=== PATIENT | female | born 1955 | race Caucasian/White ===

== ENCOUNTER → 2016-12-29 | Outpatient (CLI) | payer OTHER ==
[~2016-12-29] MED LIST: ACET1CAP18 PO; ALBI1INJ2 SQ; AUGM875T PO; BENZ100 PO; BLOOD GLUCOSE M1 KIT; CENTTAB8 PO; ERGO1CAP10 PO; HYDR12.57 PO; IBUP800T23 PO; INSU1INJ5 SQ; MAGN500T5 PO; MEGE40TA PO; METF500T PO; OXYC1TAB63 PO; PRAV20TA2 PO; VICT18IN SQ
[2016-12-29 11:09] LABS: AUTOMATED NEUTROPHIL # 3.2 TH/MM3 (1.8-7.7); BASOPHIL # 0.1 TH/MM3 (0-0.2); BASOPHIL % 0.8 % (0.0-2.0); EOSINOPHIL # 0.3 TH/MM3 (0-0.4); EOSINOPHIL % 3.9 % (0.0-4.0); HEMATOCRIT 37.2 % (35.0-46.0); HEMO FLAGS DIFF FINAL; LYMPH % 39.2 % (9.0-44.0); LYMPHOCYTE # 2.6 TH/MM3 (1.0-4.8); MEAN CELL VOLUME 78.3 FL (80.0-100.0); MEAN CORPUSCULAR HEMOGLOBIN 25.8 PG (27.0-34.0); MONO % 7.2 % (0.0-8.0); NEUT % 48.9 % (16.0-70.0); PLATELET COUNT 268 TH/MM3 (150-450); RED BLOOD COUNT 4.75 MIL/MM3 (4.00-5.30); RED CELL DISTRIBUTION WIDTH 16.4 % (11.6-17.2); WHITE BLOOD COUNT 6.5 TH/MM3 (4.0-11.0)
[2016-12-29 11:15] LABS: APTT (PATIENT) 26.6 SEC (24.3-30.1); PROTHROMBIN TIME - PATIENT 10.7 SEC (9.8-11.6)
[2016-12-29 11:35] LABS: TRANSFERRIN IRON PROFILE 338 MG/DL (200-360)
[2016-12-29 11:44] LABS: ALKALINE PHOSPHATASE 73 U/L (45-117); ALT (GPT) 29 U/L (10-53); ANION GAP 11 MEQ/L (5-15); AST (GOT) 11 U/L (15-37); BICARBONATE 21.5 MEQ/L (21.0-32.0); BLOOD UREA NITROGEN 12 MG/DL (7-18); CHLORIDE 109 MEQ/L (98-107); FREE T4 1.05 NG/DL (0.76-1.46); GLOMERULAR FILTRATION RATE 82 ML/MIN (>89); GLUCOSE,FASTING 108 MG/DL (74-99); HDL CHOLESTEROL 29.5 MG/DL (40.0-60.0); LDL CHOLESTEROL 114 MG/DL (0-99); POTASSIUM 3.9 MEQ/L (3.5-5.1); SODIUM (NA) 141 MEQ/L (136-145); TOTAL BILIRUBIN ADULT 0.3 MG/DL (0.2-1.0)
[2016-12-29 12:15] LABS: HEMOGLOBIN A1a 1.4 %; HEMOGLOBIN A1b 2.2 %; HEMOGLOBIN Ao 81.7 %; HEMOGLOBIN LA1C 2.1 %
[2016-12-29 15:32] LABS: CREATININE RANDOM URINE 25 MG/DL (27-300)
[2016-12-29 15:41] LABS: MICRO ALBUMIN RANDOM URINE RAW LESS THAN 5.0 MG/L (0.0-30.0); MICROALBUMIN/CREAT RATIO RAND 20 MG/G CRE (0-30)
[2017-01-02 17:54] LABS: THYROGLOB ABS LESS THAN 1 IU/mL (< OR = 1)
== END ==
LOC: CLAB 10:22
PROVIDERS: ATTEND Internal Medicine Geriatric Medicine
DX: Z01.812 Encounter for preprocedural laboratory examination (principal); E11.9 Type 2 diabetes mellitus without complications; I10 Essential (primary) hypertension; E78.5 Hyperlipidemia, unspecified; E03.9 Hypothyroidism, unspecified; E55.9 Vitamin D deficiency, unspecified; R53.83 Other fatigue; R71.8 Other abnormality of red blood cells
CPT/HCPCS: 36415; 80053; 80061; 82043; 82306; 83036; 83540; 83550; 84439; 84443; 84480; 85025; 85610; 85730; 86376; 86800

== ENCOUNTER 2017-01-04 05:50 | Observation (INO) | payer OTHER ==
[~2017-01-04] VITALS: Ht 121.9 cm; Wt 5.0 kg
[~2017-01-04 05:50] MED LIST changes: -ALBI1INJ2 SQ; -AUGM875T PO; -BENZ100 PO; -CENTTAB8 PO; -ERGO1CAP10 PO; -HYDR12.57 PO; -IBUP800T23 PO; -OXYC1TAB63 PO
[2017-01-04 06:15] VITALS: BP 135/72; PULSE 93; RESP 20; TEMP 98.9; O2SAT 96
[2017-01-04] MEDS ORDERED: HEPARIN SODIUM - SQ 10,000 UNITS/ML VIAL SQ SCH (06:30)
[2017-01-04] MEDS ORDERED: ceFAZolin 2 GM PREMIX 50 ML IV SCH ×2 (06:30)
[2017-01-04] MEDS: SODIUM CHLORID 0.9% 500 ML IV SCH ×2 (06:45→23:24)
[2017-01-04] MEDS ORDERED: METOPROLOL TARTRATE 25 MG TAB PO PRN (06:45)
[2017-01-04] MEDS ORDERED: INSULIN HUMAN REGULAR 1,000 UNITS/10 ML VIAL SQ PRN (06:45)
[2017-01-04] MEDS ORDERED: LACTATED RINGER'S 1000 ML IV SCH (06:45)
[2017-01-04] MEDS ORDERED: DICLOFENAC SODIUM 37.5 MG/ML VIAL IV PUSH ONE (07:01)
[2017-01-04] MEDS ORDERED: SUGAMMADEX SODIUM 200 MG/2 ML VIAL IV PUSH ONE ×2 (07:02)
[2017-01-04] MEDS ORDERED: ACETAMINOPHEN 1000 MG/100 ML VIAL IV ONE (07:02)
[2017-01-04] MEDS ORDERED: HYDROmorphone HCL PF 2 MG/ML VIAL ONE (07:02)
[2017-01-04] MEDS ORDERED: ARTIFICIAL TEARS OPTH OINT 3.5 APPLIC/3.5 GM TUBO ONE (07:45)
[2017-01-04] MEDS ORDERED: LIDOCAINE 1%/EPINEPHrine 1:100,000 SOLN 30 ML VIAL INFIL ONE (08:30)
[2017-01-04] MEDS ORDERED: ceFAZolin INJ 1,000 MG VIAL IV ONE (10:20)
[2017-01-04] MEDS ORDERED: METHYLENE BLUE 10 MG/ML VIAL OTHER ONE (11:07)
[2017-01-04] MEDS ORDERED: NORMOSOL R INJ 1,000 ML IV ONE (12:00)
[2017-01-04] MEDS ORDERED: PHENYLEPH/NS 1000 MCG/10 ML SYR IV ONE (12:00)
[2017-01-04] MEDS ORDERED: ONDANSETRON HCL 4 MG/2 ML VIAL IV PUSH ONE (12:00)
[2017-01-04] MEDS ORDERED: PROPOFOL 200 MG/20 ML AMP IV ONE (12:00)
[2017-01-04] MEDS ORDERED: NEOSTIGMINE 3 MG/3 ML SYR IV ONE (12:00)
[2017-01-04] MEDS ORDERED: DO NOT ADM ANY ANTICOAGULANT DRUGS XX PRN (12:12)
[2017-01-04] MEDS ORDERED: SODIUM CHLORIDE 0.9% FLUSH 5 ML FLUSH FLUSH PRN (12:15)
[2017-01-04] MEDS ORDERED: *morphine SULFATE 8 MG/ML PERIprocedure ONLY ONE (12:36)
[2017-01-04] MEDS ORDERED: fentaNYL CITRATE 250 MCG/5 ML AMP ONE (12:42)
[2017-01-04] MEDS ORDERED: MIDAZOLAM HCL 2 MG/2 ML VIAL ONE (12:42)
[2017-01-04] MEDS: KETOROLAC TROMETHAMINE 30 MG/ML (IVP) VIAL IVP SCH ×3 (13:00→23:22)
[2017-01-04] MEDS ORDERED: oxyCODONE/ACETAMINOPHEN 5 MG/325 MG TAB PO PRN (13:00)
[2017-01-04] MEDS ORDERED: LORazepam 0.5 MG TAB PO PRN (13:00)
[2017-01-04] MEDS ORDERED: HYDROmorphone HCL PF 1 MG/ML VIAL IVP PRN (13:00)
[2017-01-04] MEDS ORDERED: ONDANSETRON HCL 4 MG/2 ML VIAL IVP PRN (13:00)
[2017-01-04] MEDS ORDERED: diphenhydrAMINE HCL 25 MG CAP PO PRN (13:00)
[2017-01-04] MEDS: D5-1/2 NS + KCL 20 MEQ INJ 1,000 ML IV SCH ×2 (13:00→23:22)
--- NOTE | 2017-01-04 15:59 | PD.ONC.PN ---
Subjective Subjective Remarks post op note pt seen in PACU awaiting bed on denies any pain or n/v no complaints at this time Objective Data Date Time Temp Pulse Resp B/P Pulse Ox O2 Delivery O2 Flow Rate FiO2 01/04/17 14:59 78 15 124/56 98 Nasal Cannula 2 01/04/17 13:40 80 15 107/64 97 Nasal Cannula 2 01/04/17 12:30 72 15 135/56 97 Nasal Cannula 2 01/04/17 12:15 99 15 131/64 96 Nasal Cannula 2 01/04/17 12:12 99.0 99 15 128/74 96 Nasal Cannula 2 01/04/17 06:15 98.9 93 20 135/72 96 01/04/17 01/04/17 01/04/17 07:00 15:00 23:00 Intake Total 1500 ml Output Total 800 ml Balance 700 ml Laboratory Results Laboratory Tests Test 01/04/17 06:30 Blood Type B POSITIVE Antibody Screen NEGATIVE Blood Bank Comment Administered Medications Medications (Trade) Dose Ordered Sig/Basia Route PRN Reason Start Time Stop Time Status Last Admin Dose Admin Potassium Chloride/Dextrose/ Sod Cl (D5-1/2 NS + KCl 20 Meq Inj) 1,000 ml @ 100 mls/hr Q10H IV 01/04/17 13:00 01/04/17 13:00 Ketorolac Tromethamine (Toradol Inj) 15 mg Q6H IVP 01/04/17 13:00 01/05/17 07:01 01/04/17 13:00 Objective Remarks GENERAL: Well-nourished, well-developed patient. SKIN: Warm and dry. HEAD: Normocephalic. EYES: lids mild swelling CARDIOVASCULAR: Regular rate and rhythm without murmurs. RESPIRATORY: Breath sounds equal bilaterally. No accessory muscle use. GASTROINTESTINAL: SS are C/D/I EXTREMITIES: teds and scds MUSCULOSKELETAL: Adequate muscle tone. NEUROLOGICAL: Awake, alert, and oriented x3. PSYCHIATRIC: Appropriate mood and affect; insight and judgment normal. Assessment/Plan Problem List: (1) Endometrial hyperplasia with atypia Status: Resolved Plan: s/p RA lap hyst with BSO (2) Postoperative state Status: Acute Plan: post op orders in chart pain meds per EMR ADAT OOB to chair encourage IS anticipate d/c home in next 24 hours d/c Gold in morning Remedios,Dorey L. OPERATIONS SUPPORT SPECIALIST Jan 04, 2017 15:59
[2017-01-04] MEDS: INSULIN NovoLIN REGULAR SUPPLEMENTAL SCALE SQ SCH ×2 (16:00→20:55)
[2017-01-04 17:30] VITALS: BP 115/59; PULSE 89; RESP 20; TEMP 97.8; O2SAT 96
[2017-01-04 20:00] VITALS: BP 111/58; PULSE 70; RESP 17; TEMP 97.4; O2SAT 96
[2017-01-04] MEDS: SODIUM CHLORIDE 0.9% FLUSH 5 ML FLUSH FLUSH SCH (20:49)
[2017-01-05] VITALS: BP 121/72; PULSE 76; RESP 17; TEMP 97.7; O2SAT 98
[2017-01-05 04:00] VITALS: BP 123/64; PULSE 84; RESP 18; TEMP 96.9; O2SAT 95
[2017-01-05] MEDS: oxyCODONE/ACETAMINOPHEN 5 MG/325 MG TAB PO PRN ×2 (04:23→09:08)
[2017-01-05 04:40] VITALS: O2SAT 95
[2017-01-05] MEDS: KETOROLAC TROMETHAMINE 30 MG/ML (IVP) VIAL IVP SCH (05:59)
[2017-01-05] MEDS: INSULIN NovoLIN REGULAR SUPPLEMENTAL SCALE SQ SCH (06:00)
[2017-01-05] MEDS ORDERED: OXYC1TAB63 PO (06:57)
[2017-01-05 08:00] VITALS: BP 106/57; PULSE 79; RESP 18; TEMP 97.3; O2SAT 95
[2017-01-05 08:11] VITALS: O2SAT 96
[2017-01-05] MEDS ORDERED: PRAVASTATIN SOD 20 MG TAB PO SCH (09:00)
[2017-01-05] MEDS: D5-1/2 NS + KCL 20 MEQ INJ 1,000 ML IV SCH (09:00)
[2017-01-05] MEDS: SODIUM CHLORIDE 0.9% FLUSH 5 ML FLUSH FLUSH SCH (09:08)
[2017-01-05 10:06] LABS: AUTOMATED NEUTROPHIL # 5.1 TH/MM3 (1.8-7.7); BASOPHIL % 0.5 % (0.0-2.0); EOSINOPHIL # 0.2 TH/MM3 (0-0.4); EOSINOPHIL % 2.1 % (0.0-4.0); HEMATOCRIT 33.6 % (35.0-46.0); HEMO FLAGS DIFF FINAL; LYMPH % 24.3 % (9.0-44.0); LYMPHOCYTE # 1.9 TH/MM3 (1.0-4.8); MEAN CELL VOLUME 79.7 FL (80.0-100.0); MEAN CORPUSCULAR HEMOGLOBIN 25.5 PG (27.0-34.0); MEAN CORPUSCULAR HGB CONC 32.1 % (32.0-36.0); MONO % 8.3 % (0.0-8.0); NEUT % 64.8 % (16.0-70.0); PLATELET COUNT 240 TH/MM3 (150-450); RED BLOOD COUNT 4.22 MIL/MM3 (4.00-5.30); RED CELL DISTRIBUTION WIDTH 16.5 % (11.6-17.2); WHITE BLOOD COUNT 7.8 TH/MM3 (4.0-11.0)
[2017-01-05 10:36] LABS: BICARBONATE 25.1 MEQ/L (21.0-32.0); POTASSIUM 3.4 MEQ/L (3.5-5.1)
--- NOTE | 2017-01-05 21:25 | MP ---
cc: MD ALMA DELIA,MOUSTAPHA PATTERSON MD,JESSICA Alcantara MD DATE OF SURGERY 01/04/2017 PREOPERATIVE DIAGNOSIS 1. Postmenopausal bleeding. 2. Complex atypical endometrial hyperplasia. 3. Enlarged uterus. POSTOPERATIVE DIAGNOSIS 1. Postmenopausal bleeding. 2. Complex atypical endometrial hyperplasia. 3. Enlarged uterus. 4. Multiple uterine leiomyomas and endometrial polyp. PROCEDURE Robotic-assisted laparoscopic hysterectomy, bilateral salpingo-oophorectomy. SURGEON Lorraine Taylor MD IRRIGATION SYSTEM INSTALLER Victor director of first impressions ANESTHESIA General endotracheal anesthesia ESTIMATED BLOOD LOSS 300 mL IV FLUIDS 1500 mL URINE OUTPUT 500 mL HISTORY A 61-year-old female postmenopausal bleeding, thickened endometrial stripe. Sampling of the endometrium revealed and removed a fairly large polyp approximately 4 cm. There was some complex atypical endometrial hyperplasia and the uterus itself was enlarged. She was counseled regarding these findings. The potentially precancers nature of atypical hyperplasia as well as often coexistent finding of endometrial cancer in the setting of an endometrial biopsy showing atypical hyperplasia. She has been counseled regarding treatment options and is in favor of definitive surgery. FINDINGS The uterine cavity sounded to between 15 and 16 cm and the overall fundal height was estimated to be close to 20 cm. The uterine fundus and uterus itself were markedly enlarged, but the cervical anatomy and paracervical tissues were normal. The tubes and ovaries grossly appeared normal bilaterally. There were no appreciably enlarged lymph nodes. There were no peritoneal implants. Liver diaphragm edges were smooth. Omentum, large/small bowel, adjacent mesentery and appendix were without implants or obvious abnormality. A few colonic diverticulum were noted without evidence of diverticulitis. Preliminary pathology on the uterus once removed showed multiple leiomyomas and a large (approximately 12 cm) benign-appearing endometrial polyp which may have had some hyperplasia on the epithelium, no overt evidence of malignancy. STATEMENT OF COMPLEXITY The complexity of this case was increased significantly due to the markedly enlarged uterus which increased the complexity at the many steps of the procedure and modifier should be applied accordingly. PROCEDURE IN DETAIL The patient taken operating room placed in dorsal lithotomy position. after general endotracheal anesthesia was administered time-out was undertaken. The patient was identified by sight recognition and hospital ID bracelet and the proposed procedure was reviewed and confirmed. She was carefully positioned in padded Davis stirrups. Her arms were padded and secured to the sides. She was further secured to the operating table with egg crate padding and tape in across chest over the shoulder fashion. All sites were noted to be properly aligned with no malalignments or pressure points. She was prepped in sterile fashion, draped below the waist, placed in high lithotomy position. Cervix grasped, uterine cavity was sounded, cervix dilated and a large V-Care manipulator was inserted and secured usual fashion. Gold catheter placed in the bladder. She was returned to low lithotomy position. Change of sterile gloves was undertaken. We completed draping in anticipation of laparoscopy. After confirming that an orogastric airway was in the stomach on suction with manual elevation of the abdominal wall and direct laparoscopic visualization, 5 mm cannula placed in the left upper quadrant and atraumatic entry was confirmed. Carbon dioxide gas was insufflated. Peritoneal washings were obtained for cytology. She was placed in steep Trendelenburg position. The anatomy was reviewed with findings as described above. The small bowel was folded back on its mesenteric root. Three Ray-Aleks sponges were placed around the root of the small bowel mesentery. The robotic system was brought into the operative field and attached in usual fashion. Monopolar scissors, fenestrated bipolar forceps and Prograsp manipulators were placed in arms #1, 2 and 3 respectively and I took my place at the surgeon's console. Right round ligament isolated, cauterized, transected. The anterior and posterior leafs of the broad ligament were opened. Right ureter was identified. The right infundibulopelvic ligament was dissected to the level of the pelvic brim. The intervening peritoneum was opened. The infundibulopelvic ligament was cauterized and transected. Posterior peritoneum opened along the right side of the uterus and cervix. Right vesicouterine peritoneum dissected off the lower uterine segment and cervix. The right uterine vessels were skeletonized. Attention was directed toward the left side. Left round ligament isolated, cauterized, transected. Anterior and posterior leafs of the broad ligament were opened. Left ureter identified, left infundibulopelvic ligament dissected, intervening peritoneum opened. The infundibulopelvic ligament was cauterized and transected. Posterior peritoneum opened along the left side of the uterus and cervix. Left vesicouterine peritoneum dissected off the lower uterine segment cervix. The left uterine vessels were skeletonized. Uterine vessels were cauterized and transected as were the cardinal, paracervical and uterosacral ligaments. Attention was redirected to the right side where now the uterine vessels were transected. The cardinal, paracervical and uterosacral ligaments were isolated, cauterized and transected in a stepwise fashion. Circumferential colpotomy was performed following the cap of the V-Care manipulator the cervix from the upper vagina. I left the surgeon's console. She was placed in high lithotomy position and the cervix was brought into the vaginal canal and the specimen was delivered after a fairly extensive efforts to perform multiple myomectomies where the fibroids were delivered transvaginally and to core the central aspect of the large uterus to gradually reduce the size and deliver the specimen transvaginally which consisted of uterus, cervix, tubes and ovaries and the leiomyomas that were removed. A pneumo-occluder balloon was placed in the vagina to maintain pneumoperitoneum. I returned to the surgeon's console. Each of the three Ray-Aleks sponges that had been placed in the peritoneum were removed transvaginally, each were removed and inspected noted to be removed in their entirety. Instruments 1 and 3 were exchanged for needle drivers as the vaginal cuff was closed starting at the left corner full-thickness closure including incorporation of the edge of the uterosacral ligament, posterior peritoneum, running closure was held on counter traction as a continuous full-thickness closure was carried across the vaginal apex to the contralateral corner where it was similarly fixed and secured, tied via instrument tie. The needle was cut and removed. Integrity of the bladder was confirmed by filling the bladder with saline dyed with methylene blue, distended nicely under pressure, no thin areas in the bladder. No extravasation of dye and a good margin between the bladder edge and the vaginal cuff suture line. Good peristalsis of ureters bilaterally. The pelvis was thoroughly irrigated. Small bleeders rendered hemostatic with bipolar cautery and hemostatic Pamela powder placed across the vaginal apex. There were no remaining foreign objects in the peritoneal cavity. Preliminary counts were correct. Pathology returned showing benign findings. It was felt that all reasonable surgical objectives in this patient had been completed. Accordingly, the robotic instruments were removed. The robotic system was disengaged from the operative field. I reentered the bedside under sterile condition. We closed the 12-mm fascial defect with 0 Vicryl sutures interrupted using a needle pass apparatus, tied securely, rendered the fascia completely airtight and hemostatic. The remaining cannulas were withdrawn. Carbon dioxide gas was removed from the peritoneum, 3-0 Vicryl subcutaneous, 3-0 Vicryl subcuticular and Steri-Strips used to close these incisions. She was turned to dorsal lithotomy position. Pelvic exam confirmed there were no remaining foreign objects in the vagina. Vaginal cuff suture line was well supported hemostatic. There were no vaginal lacerations. Final counts were correct. She was returned to dorsal supine position and was pending reversal of anesthesia when I left the operating room to precede her to the Post Anesthesia Care Unit. MD LETI Alan/ /8:55 AM /9:05 PM
--- NOTE | 2017-01-07 21:47 | MD ---
cc: JESSICA KING MD,MOUSTAPHA FLANNERY MD, RENUKA ADMISSION DATE: 01/04/2017 DISCHARGE DATE: 01/05/2017 PROCEDURE 01/04/2017, robotic-assisted laparoscopic hysterectomy and bilateral salpingo-oophorectomy. HOSPITAL COURSE Did well during the first 24 hours of postop, tolerating oral intake. Gold catheter is removed pending voiding. Adequate pain control. No significant complaints. OBJECTIVE Ins and outs 3730/3550. Labs are pending at the time of this dictation. PHYSICAL EXAMINATION VITAL SIGNS: Afebrile, pulse 70-89, respirations 15-20, blood pressure 111-123 over 58/72, O2 saturations greater than or equal to 95%. GENERAL: Alert and oriented times three. In no acute distress. LUNGS: Clear at apices, mild rales at the bases. CARDIOVASCULAR: Regular rate and rhythm. Juanjose Soft. Incisions clean and dry. GYNECOLOGIC: No bleeding. ASSESSMENT Postop day #1 doing well. Findings, preliminary pathology reviewed. Activities, restrictions discussed. Questions answered. Overall doing well in early postop. PLAN Anticipate discharge to home. She is to resume prior medications. She is cautioned regarding the use of Percocet and acetaminophen and is she is advised to use one or the other. Otherwise resume prior medications. She is to contact our office to schedule followup in two weeks or to contact our office at any time should there be any questions or problems. Our office number is again made available. MD LETI Alan/KK /7:01 AM /9:39 PM
[2017-01-25] MEDS ORDERED: IBUP800T23 PO (08:33)
[2017-01-25] MEDS ORDERED: ERGO1CAP10 PO (08:33)
[2017-01-25] MEDS ORDERED: ALBI1INJ2 SQ (08:33)
[2017-01-25] MEDS ORDERED: CENTTAB8 PO (08:33)
[2017-01-25] MEDS ORDERED: HYDR12.57 PO (08:55)
[2017-01-25] MEDS ORDERED: PRAV20TA2 PO (08:57)
[2017-03-15] MEDS ORDERED: AUGM875T PO (13:50)
[2017-03-15] MEDS ORDERED: BENZ100 PO (13:50)
[2017-03-15] MEDS ORDERED: METF500T PO (13:50)
== END 2017-01-05 11:56 | disposition home or self-care (01) ==
LOC: HSDC 05:50 → HSDI 12:31 → HOCB 17:17
PROVIDERS: ADMIT Obstetrics & Gynecology Gynecologic Oncology; ATTEND Obstetrics & Gynecology Gynecologic Oncology
DX: N85.01 Benign endometrial hyperplasia (principal); N95.0 Postmenopausal bleeding; N84.0 Polyp of corpus uteri; E11.9 Type 2 diabetes mellitus without complications
CPT/HCPCS: 00840; 58554; 80048; 82948; 85025; 86850; 86900; 86901; 88307; 88331; 94150; G0378; J0131; J0690; J1130; J1170; J1644; J1885; J2250; J2270; J2370; J2405; J2710; J3010; J3480

== ENCOUNTER → 2017-03-27 | Outpatient (CLI) | payer OTHER ==
[~2017-03-27] MED LIST changes: -ACET1CAP18 PO; +ALBI1INJ2 SQ; +AUGM875T PO; +BENZ100 PO; +CENTTAB8 PO; +ERGO1CAP10 PO; +HYDR12.57 PO; +IBUP800T23 PO; -MEGE40TA PO; +OXYC1TAB63 PO; -VICT18IN SQ
[2017-03-27 08:44] LABS: AUTOMATED NEUTROPHIL # 6.6 TH/MM3 (1.8-7.7); BASOPHIL # 0.1 TH/MM3 (0-0.2); BASOPHIL % 0.6 % (0.0-2.0); EOSINOPHIL # 0.1 TH/MM3 (0-0.4); EOSINOPHIL % 1.3 % (0.0-4.0); HEMATOCRIT 41.5 % (35.0-46.0); HEMO FLAGS DIFF FINAL; LYMPH % 22.5 % (9.0-44.0); LYMPHOCYTE # 2.1 TH/MM3 (1.0-4.8); MEAN CORPUSCULAR HEMOGLOBIN 26.8 PG (27.0-34.0); MEAN CORPUSCULAR HGB CONC 32.3 % (32.0-36.0); MONO % 5.6 % (0.0-8.0); PLATELET COUNT 357 TH/MM3 (150-450); RED BLOOD COUNT 4.99 MIL/MM3 (4.00-5.30); WHITE BLOOD COUNT 9.5 TH/MM3 (4.0-11.0)
[2017-03-27 09:15] LABS: ALKALINE PHOSPHATASE 90 U/L (45-117); ALT (GPT) 23 U/L (10-53); ANION GAP 7 MEQ/L (5-15); AST (GOT) 12 U/L (15-37); BICARBONATE 29.3 MEQ/L (21.0-32.0); BLOOD UREA NITROGEN 25 MG/DL (7-18); CHLORIDE 106 MEQ/L (98-107); GLOMERULAR FILTRATION RATE 74 ML/MIN (>89); GLUCOSE,FASTING 72 MG/DL (74-99); HDL CHOLESTEROL 54.1 MG/DL (40.0-60.0); LDL CHOLESTEROL 147 MG/DL (0-99); POTASSIUM 3.9 MEQ/L (3.5-5.1); SODIUM (NA) 142 MEQ/L (136-145); TOTAL BILIRUBIN ADULT 0.3 MG/DL (0.2-1.0)
[2017-03-27 16:09] LABS: HEMOGLOBIN A1a 1.2 %; HEMOGLOBIN Ao 85.5 %; HEMOGLOBIN F 0.8 %; HEMOGLOBIN LA1C 1.8 %; HEMOGLOBIN P3 5.2 %
== END ==
LOC: CLAB 08:17
PROVIDERS: ATTEND Internal Medicine Endocrinology, Diabetes & Metabolism
DX: E78.5 Hyperlipidemia, unspecified (principal); E61.1 Iron deficiency; E11.9 Type 2 diabetes mellitus without complications; I10 Essential (primary) hypertension; E55.9 Vitamin D deficiency, unspecified
CPT/HCPCS: 36415; 80053; 80061; 82306; 82728; 83036; 85025

== ENCOUNTER → 2017-04-18 | Day surgery (SDC) | payer OTHER ==
[~2017-04-18] MED LIST changes: +LACTATED RINGER'S 1000 ML INJ 1,000 ML ONE; +PROPOFOL 500 MG/50 ML BTL IV ONE
--- NOTE | 2017-04-18 10:12 | GIPROC ---
[facility] [address] [facility], [address] EGD PROCEDURE REPORT EXAM DATE: 04/18/2017 PATIENT NAME: Marija Chamorro MR #: [id number] BIRTHDATE: 1955 ATTENDING: Bridger Lang MD ORDER #: [id number] BIZTALK ARCHITECT: Kim Rogers STATUS: outpatient INDICATIONS: The patient is a 61 yr old female here for an EGD due to iron deficiency anemia PROCEDURE PERFORMED: EGD w/ biopsy MEDICATIONS: None, Per Anesthesia, None, and Per Anesthesia. TOPICAL ANESTHETIC: CONSENT: The patient understands the risks and benefits of the procedure and understands that these risks include, but are not limited to: sedation, allergic reaction, infection, perforation and/or bleeding. Alternative means of evaluation and treatment include, among others: physical exam, x-rays, and/or surgical intervention. The patient elects to proceed with this endoscopic procedure. medical equipment was checked for proper function. Hand hygiene and appropriate measures for infection prevention was taken. After the risks, benefits and alternatives of the procedure were thoroughly explained, Informed consent was verified, confirmed and timeout was successfully executed by the treatment team. The patient was anesthetized with topical anesthesia and the EC-3890Li ([id number]) endoscope was introduced through the mouth and advanced to the second portion of the duodenum. Retroflexed views revealed no abnormalities The gastroscope was then slowly withdrawn and removed. Irregular z line this was biopsied. The endoscopy was otherwise normal. STOMACH: There was erythematous moderate and erosive gastritis in the gastric antrum. Multiple biopsies were performed. DUODENUM: The duodenal mucosa appeared normal. Cold forcep biopsies were taken in the second portion. ADVERSE EVENTS: There were no complications. IMPRESSIONS: 1. Irregular z line this was biopsied 2. Normal endoscopy otherwise 3. There was erythematous gastritis in the gastric antrum; multiple biopsies were performed 4. Normal duodenal mucosa 5. Retroflexed views revealed no abnormalities RECOMMENDATIONS: 1. Await biopsy results. Biopsy results will not be ready for 7-10 days. If you don't hear from us in two weeks, call our office for biopsy results. 2. Follow-up: GI clinic 4 week(s) 3. Protonix 40mg Q AM PATIENT CONDITION: stable DISPOSITION: Home REPEAT EXAM: Bridger Lang MD eSigned: Bridger Lang MD 04/18/2017 10:12 AM cc: Radha Blackburn
--- NOTE | 2017-04-18 10:17 | GIPROC ---
[facility] [address] [facility] [address], [address] COLONOSCOPY PROCEDURE REPORT EXAM DATE: 04/18/2017 PATIENT NAME: Marija Chamorro MR #: [id number] BIRTHDATE: 1955 ENDOSCOPIST: Bridger Lang MD ORDER #: [id number] DOCUMENTATION SPECIALIST: Kim Rogers STATUS: outpatient INDICATIONS: The patient is a 61 yr old female here for a colonoscopy due to patient's immediate family history of colon cancer and iron deficiency anemia MEDICATIONS: None and Per Anesthesia. PREP QUALITY: excellent ESTIMATED BLOOD LOSS: None CONSENT: The patient understands the risks and benefits of the procedure and understands that these risks include, but are not limited to: sedation, allergic reaction, infection, perforation and/or bleeding. Alternative means of evaluation and treatment include, among others: physical exam, x-rays, and/or surgical intervention. The patient elects to proceed with this endoscopic procedure. medical equipment was checked for proper function. Hand hygiene and appropriate measures for infection prevention was taken. After the risks, benefits and alternatives of the procedure were thoroughly explained, Informed consent was verified, confirmed and timeout was successfully executed by the treatment team. A digital exam revealed no abnormalities of the rectum The EC-3490Li ([id number]) endoscope was introduced through the anus and advanced to the cecum, which was identified by both the appendix and ileocecal valve. The instrument was then slowly withdrawn as the colon was fully examined. COLON FINDINGS: A medium sized smooth sessile polyp was found in the sigmoid colon. A polypectomy was performed with a cold snare. The resection was complete and the polyp tissue was completely retrieved. Mild diverticulosis was noted in the sigmoid colon. The colon mucosa was otherwise normal. Retroflexed views revealed no abnormalities The scope was then completely withdrawn from the patient and the procedure terminated. PROCEDURE WITHDRAWAL TIME:8minutes ADVERSE EVENTS: There were no complications. IMPRESSIONS: 1. A medium sized sessile polyp was found in the sigmoid colon; polypectomy was performed with a cold snare 2. Mild diverticulosis was noted in the sigmoid colon 3. The colon mucosa was otherwise normal 4. Retroflexed views revealed no abnormalities 5. Revealed no abnormalities of the rectum RECOMMENDATIONS: 1. Await biopsy results. Biopsy results will not be ready for 7-10 days. If you don't hear from us in two weeks, call our office for results. 2. High fiber diet 3. Follow-up: GI Clinic PRN 4. Yearly hemoccult RECALL: Return 5 years Colonoscopy Bridger Lang MD eSigned: Bridger Lang MD 04/18/2017 10:16 AM cc: Kishor Doshi [facility] [place] PATIENT NAME: Marija Chamorro Jony MR#: [id number]
== END | disposition home or self-care (01) ==
LOC: ESDC 08:32
PROVIDERS: ATTEND Internal Medicine Gastroenterology
DX: Z12.11 Encounter for screening for malignant neoplasm of colon (principal); Z80.0 Family history of malignant neoplasm of digestive organs; D50.9 Iron deficiency anemia, unspecified; D12.5 Benign neoplasm of sigmoid colon; K57.90 Diverticulosis of intestine, part unspecified, without perforation or abscess without bleeding; K22.9 Disease of esophagus, unspecified; K29.70 Gastritis, unspecified, without bleeding
CPT/HCPCS: 00740; 00810; 43239; 45385; 82948; 88305; 88312; J3010; J7120

== ENCOUNTER → 2017-05-18 | Outpatient (CLI) | payer OTHER ==
[~2017-05-18] MED LIST changes: +CALC1TAB12 PO; +CHOL1CAP34 PO; +INSU1INJ14 SQ; -LACTATED RINGER'S 1000 ML INJ 1,000 ML ONE; +MULT-65 PO; +NYSTCRE29 TOPICAL; +PANT40TA3 PO; -PROPOFOL 500 MG/50 ML BTL IV ONE; +ROSU1TAB8 PO; +ZANTTAB PO
[2017-05-18 13:46] LABS: HEMATOCRIT 38.6 % (35.0-46.0); MEAN CELL VOLUME 85.5 FL (80.0-100.0); MEAN CORPUSCULAR HEMOGLOBIN 28.4 PG (27.0-34.0); MEAN CORPUSCULAR HGB CONC 33.2 % (32.0-36.0); PLATELET COUNT 288 TH/MM3 (150-450); RED BLOOD COUNT 4.52 MIL/MM3 (4.00-5.30); RED CELL DISTRIBUTION WIDTH 16.1 % (11.6-17.2); REVIEW FLAG FINAL; WHITE BLOOD COUNT 9.3 TH/MM3 (4.0-11.0)
[2017-05-18 14:40] LABS: FERRITIN 55 NG/ML (8-252); TRANSFERRIN IRON PROFILE 224 MG/DL (200-360)
[2017-05-20 07:53] LABS: IGA SERUM 207 mg/dL (81-463); TISSUE TRANSGLUTAMINASE AB IGG ND U/mL (())
[2017-05-21 13:52] LABS: ENDOMYSIAL AB TITER ND (<1:5); TISSUE TRANSGLUTAMINASE AB LESS THAN 1 U/mL (())
== END ==
LOC: CLAB 13:15
PROVIDERS: ATTEND Nurse Practitioner Family
DX: D50.9 Iron deficiency anemia, unspecified (principal)
CPT/HCPCS: 36415; 82607; 82728; 82746; 82784; 83516; 83540; 83550; 85027

== ENCOUNTER → 2017-07-06 | Outpatient (CLI) | payer OTHER ==
[~2017-07-06] MED LIST changes: -AUGM875T PO; -BENZ100 PO; -CENTTAB8 PO; -ERGO1CAP10 PO; -OXYC1TAB63 PO; -PRAV20TA2 PO
[2017-07-06 10:50] LABS: AUTOMATED NEUTROPHIL # 4.2 TH/MM3 (1.8-7.7); BASOPHIL % 0.6 % (0.0-2.0); EOSINOPHIL # 0.1 TH/MM3 (0-0.4); EOSINOPHIL % 1.9 % (0.0-4.0); HEMATOCRIT 38.6 % (35.0-46.0); HEMO FLAGS DIFF FINAL; LYMPH % 29.2 % (9.0-44.0); MEAN CELL VOLUME 86.4 FL (80.0-100.0); MEAN CORPUSCULAR HEMOGLOBIN 28.9 PG (27.0-34.0); MEAN CORPUSCULAR HGB CONC 33.5 % (32.0-36.0); MONO % 7.3 % (0.0-8.0); PLATELET COUNT 266 TH/MM3 (150-450); RED BLOOD COUNT 4.47 MIL/MM3 (4.00-5.30); WHITE BLOOD COUNT 6.9 TH/MM3 (4.0-11.0)
[2017-07-06 11:37] LABS: ANION GAP 6 MEQ/L (5-15); AST (GOT) 11 U/L (15-37); BICARBONATE 30.4 MEQ/L (21.0-32.0); BLOOD UREA NITROGEN 19 MG/DL (7-18); CHLORIDE 104 MEQ/L (98-107); GLOMERULAR FILTRATION RATE 107 ML/MIN (>89); GLUCOSE,FASTING 63 MG/DL (74-99); POTASSIUM 3.7 MEQ/L (3.5-5.1); SODIUM (NA) 140 MEQ/L (136-145)
[2017-07-06 11:38] LABS: ALT (GPT) 20 U/L (10-53)
[2017-07-06 11:40] LABS: ALKALINE PHOSPHATASE 87 U/L (45-117); HDL CHOLESTEROL 53.6 MG/DL (40.0-60.0); LDL CHOLESTEROL 68 MG/DL (0-99); TOTAL BILIRUBIN ADULT 0.3 MG/DL (0.2-1.0)
[2017-07-06 15:45] LABS: BLOOD, URINE NEG (NEG); GLUCOSE,URINE NEG (NEG); KETONE, URINE NEG (NEG); NITRITE,URINE NEG (NEG); URINE COLOR LIGHT-YELLOW (YELLW/STRAW)
[2017-07-06 15:46] LABS: COMMENT (UR) CULT NOT INDICATED; CULTURE IF INDICATED CULT NOT INDICATED
[2017-07-06 16:50] LABS: HEMOGLOBIN A1a 1.2 %; HEMOGLOBIN A1b 1.1 %; HEMOGLOBIN Ao 85.3 %; HEMOGLOBIN F 0.8 %; HEMOGLOBIN LA1C 1.7 %; HEMOGLOBIN P3 3.8 %
== END ==
LOC: CLAB 10:01
PROVIDERS: ATTEND Internal Medicine Endocrinology, Diabetes & Metabolism
DX: E11.9 Type 2 diabetes mellitus without complications (principal); E78.5 Hyperlipidemia, unspecified; D64.9 Anemia, unspecified
CPT/HCPCS: 36415; 80053; 80061; 81001; 83036; 85025

== ENCOUNTER → 2017-10-10 | Outpatient (CLI) | payer OTHER ==
[~2017-10-10] MED LIST changes: +IBUP1TAB7 PO; -IBUP800T23 PO
[2017-10-10 11:21] LABS: ANION GAP 8 MEQ/L (5-15); AST (GOT) 13 U/L (15-37); BICARBONATE 29.1 MEQ/L (21.0-32.0); BLOOD UREA NITROGEN 15 MG/DL (7-18); CHLORIDE 102 MEQ/L (98-107); GLOMERULAR FILTRATION RATE 88 ML/MIN (>89); GLUCOSE,FASTING 70 MG/DL (74-99); POTASSIUM 3.8 MEQ/L (3.5-5.1); SODIUM (NA) 139 MEQ/L (136-145)
[2017-10-10 11:22] LABS: ALT (GPT) 24 U/L (10-53)
[2017-10-10 11:32] LABS: ALKALINE PHOSPHATASE 82 U/L (45-117); FREE T4 1.08 NG/DL (0.76-1.46); TOTAL BILIRUBIN ADULT 0.7 MG/DL (0.2-1.0)
== END ==
LOC: CLAB 10:24
PROVIDERS: ATTEND Internal Medicine Endocrinology, Diabetes & Metabolism
DX: E03.9 Hypothyroidism, unspecified (principal); E55.9 Vitamin D deficiency, unspecified; E11.9 Type 2 diabetes mellitus without complications; I10 Essential (primary) hypertension; E78.5 Hyperlipidemia, unspecified
CPT/HCPCS: 36415; 80053; 82306; 84439; 84443

== ENCOUNTER → 2017-11-01 | Outpatient (CLI) | payer OTHER ==
[~2017-11-01] MED LIST changes: +AUGM875T3 PO
[2017-11-01 10:27] LABS: AUTOMATED NEUTROPHIL # 9.3 TH/MM3 (1.8-7.7); BASOPHIL # 0.1 TH/MM3 (0-0.2); BASOPHIL % 0.4 % (0.0-2.0); EOSINOPHIL # 0.2 TH/MM3 (0-0.4); EOSINOPHIL % 1.3 % (0.0-4.0); HEMATOCRIT 40.9 % (35.0-46.0); HEMO FLAGS DIFF FINAL; LYMPH % 16.9 % (9.0-44.0); LYMPHOCYTE # 2.1 TH/MM3 (1.0-4.8); MEAN CELL VOLUME 86.1 FL (80.0-100.0); MEAN CORPUSCULAR HEMOGLOBIN 28.6 PG (27.0-34.0); MEAN CORPUSCULAR HGB CONC 33.3 % (32.0-36.0); MONO % 5.3 % (0.0-8.0); NEUT % 76.1 % (16.0-70.0); PLATELET COUNT 290 TH/MM3 (150-450); RED BLOOD COUNT 4.75 MIL/MM3 (4.00-5.30); WHITE BLOOD COUNT 12.3 TH/MM3 (4.0-11.0)
[2017-11-01 11:15] LABS: FERRITIN 50 NG/ML (8-252); TRANSFERRIN IRON PROFILE 266 MG/DL (200-360)
[2017-11-01 13:07] LABS: CREATININE RANDOM URINE 50 MG/DL (27-300)
[2017-11-01 13:16] LABS: MICRO ALBUMIN RANDOM URINE RAW LESS THAN 5.0 MG/L (0.0-30.0)
== END ==
LOC: CLAB 09:58
PROVIDERS: ATTEND Nurse Practitioner Family
DX: E11.9 Type 2 diabetes mellitus without complications (principal); D64.89 Other specified anemias
CPT/HCPCS: 36415; 82043; 82728; 83540; 83550; 85025

== ENCOUNTER → 2018-04-22 | Outpatient (CLI) | payer OTHER ==
[~2018-04-22] MED LIST changes: -CALC1TAB12 PO; -MAGN500T5 PO; -MULT-65 PO
[2018-04-22 11:29] LABS: ALBUMIN 3.6 GM/DL (3.4-5.0); ALT (GPT) 24 U/L (10-53); AST (GOT) 12 U/L (15-37); BICARBONATE 28.5 MEQ/L (21.0-32.0); BLOOD UREA NITROGEN 17 MG/DL (7-18); CALCIUM 8.8 MG/DL (8.5-10.1); CHLORIDE 101 MEQ/L (98-107); CHOLESTEROL 128 MG/DL (120-200); CREATININE 0.73 MG/DL (0.50-1.00); GLOMERULAR FILTRATION RATE 81 ML/MIN (>89); GLUCOSE,FASTING 92 MG/DL (74-99); SODIUM (NA) 139 MEQ/L (136-145); TRIGLYCERIDES 97 MG/DL (42-150)
[2018-04-22 11:32] LABS: ALKALINE PHOSPHATASE 83 U/L (45-117); HDL CHOLESTEROL 51.2 MG/DL (40.0-60.0); LDL CHOLESTEROL 57 MG/DL (0-99); TOTAL BILIRUBIN ADULT 0.3 MG/DL (0.2-1.0); TOTAL PROTEIN 6.8 GM/DL (6.4-8.2)
[2018-04-22 16:13] LABS: HEMOGLOBIN A1C 5.5 % (4.3-6.0)
== END ==
LOC: CLAB 10:28
PROVIDERS: ATTEND Internal Medicine Endocrinology, Diabetes & Metabolism
DX: E11.9 Type 2 diabetes mellitus without complications (principal); I10 Essential (primary) hypertension; E78.5 Hyperlipidemia, unspecified; E55.9 Vitamin D deficiency, unspecified
CPT/HCPCS: 36415; 80053; 80061; 82306; 83036